=== PATIENT | female | born 1955 | race Caucasian/White ===

== ENCOUNTER 2025-01-25 17:28 | Inpatient (IN) | payer MEDICARE, MEDICAID ==
[~2025-01-25] VITALS: Ht 165.1 cm; Wt 88.5 kg
[~2025-01-25 17:28] MED LIST: ASPIRIN81 M1 PO; CARBAMAZEPINE300 MG PO; COLACE100 MG PO; FISH OIL 1,0001 EAC2 PO; INVEGA SUSTENN234 MG IM; INVEGA TRI IM; INVEGA6 MG PO; LIPITOR40 MG PO; MAALOX MAXIMUM355 ML PO; MELATONIN5 M6 PO; OMEPRAZOLE MAGN20 MG PO; SIMVASTATIN20 MG PO; SINGULAIR10 M1 PO; SYNTHROID25 MCG PO; TRAZODONE150 MG PO; TRIDERM28.4 GM T; TYLENOL EXTRA500 MG PO; VITAMIN D325 MCG PO
[2025-01-25] MEDS ORDERED: hydrOXYzine hydrochloride 50 MG/ML VIAL IM PRN (17:55)
[2025-01-25] MEDS ORDERED: Ziprasidone Mesylate 20 MG VIAL IM PRN (17:55)
[2025-01-25] MEDS ORDERED: LORazepam 1 MG TAB PO PRN (17:55)
[2025-01-25 20:00] VITALS: BP 148/82
[2025-01-25] MEDS ORDERED: carBAMazepine XR 100 MG TAB PO SCH (21:00)
[2025-01-25] MEDS ORDERED: fluvoxaMINE Maleate 50 MG TAB PO SCH (21:00)
[2025-01-25] MEDS ORDERED: Paliperidone 6 MG TER PO SCH (21:00)
[2025-01-26] MEDS ORDERED: Levothyroxine Sodium 25 MCG TAB PO SCH (06:00)
[2025-01-26 08:00] VITALS: BP 147/80
[2025-01-26] MEDS ORDERED: Cholecalciferol 2,000 UNIT TABLET (50 MCG) PO SCH (10:00)
[2025-01-26] MEDS ORDERED: Montelukast Sodium 10 MG TAB PO SCH (10:00)
[2025-01-26] MEDS ORDERED: ASPIRIN ENTERIC COATED 81 MG TAB PO SCH (10:00)
[2025-01-26] MEDS ORDERED: risperiDONE 1 MG ODT BC SCH (13:00)
[2025-01-26] MEDS ORDERED: Magnesium Hydroxide 30 ML UDC PO PRN (16:35)
[2025-01-26] MEDS ORDERED: MG-AL HYDROXIDE/SIMETICONE 30 ML UDC PO PRN (16:35)
[2025-01-26] MEDS ORDERED: ACETAMINOPHEN 325 MG TAB PO PRN (16:35)
[2025-01-26 20:00] VITALS: BP 141/46
[2025-01-26] MEDS ORDERED: Menthol/Zinc Oxide 4 GM THIN T SCH (21:00)
[2025-01-26] MEDS ORDERED: SIMVASTATIN 20 MG TAB PO SCH (22:00)
[2025-01-27 08:00] VITALS: BP 126/81
[2025-01-27] MEDS ORDERED: PALIPERIDONE PALMITATE 234 MG INJECTION IM ONE (12:20)
[2025-01-27 20:00] VITALS: BP 144/80
[2025-01-28 08:00] VITALS: BP 139/69
[2025-01-28] MEDS ORDERED: PALIPERIDONE PALMITATE 234 MG INJECTION IM ONE (08:40)
[2025-01-28] MEDS ORDERED: PALIPERIDONE PALMITATE 234 MG INJECTION IM SCH (09:20)
[2025-01-28 20:00] VITALS: BP 127/71
[2025-01-29 20:00] VITALS: BP 144/52
[2025-01-30 08:00] VITALS: BP 147/110
[2025-01-30] MEDS ORDERED: [UNRECOGNIZED DRUG - OTHER] PO PRN (09:05)
[2025-01-30] MEDS ORDERED: ALUMINUM HYDROXIDE PO PRN (09:05)
[2025-01-30] MEDS ORDERED: PALIPERIDONE PALMITATE 234 MG INJECTION IM ONE (09:30)
[2025-01-30] MEDS ORDERED: Vitamin D 1,000 IU TAB (25 MCG) PO SCH (10:00)
[2025-01-30 20:00] VITALS: BP 146/78
[2025-01-31 08:00] VITALS: BP 142/82
[2025-01-31] MEDS ORDERED: PALIPERIDONE PALMITATE 234 MG INJECTION IM PRN (08:25)
[2025-01-31] MEDS ORDERED: PALIPERIDONE PALMITATE 156 MG INJECTION IM ONE (10:20)
[2025-01-31 20:00] VITALS: BP 145/86
[2025-02-01] MEDS ORDERED: PALIPERIDONE PALMITATE 234 MG INJECTION IM ONE (08:25)
[2025-02-01 08:58] VITALS: BP 155/80
[2025-02-01 20:00] VITALS: BP 148/80
[2025-02-02 09:08] VITALS: BP 156/87
[2025-02-02 20:00] VITALS: BP 99/83
[2025-02-03 08:00] VITALS: BP 142/99
[2025-02-03] MEDS ORDERED: Menthol/Zinc Oxide 4 GM THIN T PRN (13:30)
[2025-02-03 20:00] VITALS: BP 166/100
[2025-02-03] MEDS ORDERED: NYSTATIN 15 GM BOT T SCH (21:00)
[2025-02-04 08:00] VITALS: BP 150/104
[2025-02-04] MEDS ORDERED: PALIPERIDONE PALMITATE 156 MG INJECTION IM SCH (09:35)
[2025-02-04 10:14] LABS: BASO % 0.2 % (0.0-1.0); EOS # 0.1 10*3/uL (0.0-0.4); EOS % 0.9 % (1.0-4.0); HEMATOCRIT 43.1 % (37.0-47.0); MEAN CORPUSCULAR HGB CONC 32.9 g/dl (33.0-37.0); MEAN PLATELET VOLUME 8.7 fl (9.6-12.3); MONO # 0.4 10*3/uL (0.1-1.0); MONO % 6.8 % (3.0-9.0); NEUT # 4.2 10*3/uL (2.3-7.9); NEUT % 64.8 % (47.0-73.0); PLATELET COUNT AUTOMATED 318 10*3/uL (130-400); WHITE BLOOD COUNT 6.5 10*3/uL (4.8-10.8)
[2025-02-04 11:09] LABS: ALKALINE PHOSPHATASE 112 U/L (46-116); BUN 7 mg/dl (9-23); CARBAMAZEPINE (TEGRETOL) TOTAL 6.6 ug/ml (4-12); CHLORIDE 103 mmol/L (98-107); POTASSIUM 3.8 mmol/L (3.4-5.1); TOTAL PROTEIN 7.6 gm/dL (6.0-8.0)
[2025-02-04 11:13] LABS: SGPT/ALT < 7 U/L (5-49); VALPROIC ACID (DEPAKENE) < 3.0 ug/ml (50-100); VITAMIN D, 25-HYDROXY 28.5 ng/mL (30-100)
[2025-02-04 18:25] LABS: BILIRUBIN Negative (Negative); BLOOD Negative (Negative); CLARITY Clear (Clear); COLOR Yellow (Yellow); GLUCOSE Negative (Negative); KETONE Negative (Negative); LEUKO ESTERASE Negative (Negative); NITRITE Negative (Negative); PH 5.5 (4.5-8.0); SPECIFIC GRAVITY 1.015 (1.001-1.030); UROBILINOGEN 0.2 E.U./dl (0.0-1.0)
[2025-02-04 18:46] LABS: BACTERIA TRACE; RBC 0-2 rbc/hpf (0-2); WBC 0-2 wbc/hpf (0-5)
[2025-02-04 20:00] VITALS: BP 132/67
[2025-02-05 08:00] VITALS: BP 105/76
[2025-02-05] MEDS ORDERED: Losartan Potassium 25 MG TAB PO SCH (09:00)
[2025-02-05 20:00] VITALS: BP 158/85
[2025-02-06] MEDS ORDERED: DIVALPROEX (DR) 500 MG TAB PO SCH (13:00)
[2025-02-06 20:00] VITALS: BP 126/45
[2025-02-07 08:00] VITALS: BP 121/72
[2025-02-07] MEDS ORDERED: Haloperidol Lactate 5 MG/ML AMP IM SCH (13:00)
[2025-02-07] MEDS ORDERED: HALOPERIDOL 5 MG TAB ONE (14:10)
[2025-02-07 20:00] VITALS: BP 115/68
[2025-02-07] MEDS ORDERED: HALOPERIDOL 5 MG TAB PO SCH (21:00)
[2025-02-08 08:09] VITALS: BP 125/47
[2025-02-08] MEDS ORDERED: Levothyroxine Sodium 50 MCG TAB PO SCH (09:18)
[2025-02-08 20:00] VITALS: BP 118/62
[2025-02-09 08:00] VITALS: BP 144/64
[2025-02-09] MEDS ORDERED: HALOPERIDOL DECANOATE 100 MG/ML AMP IM SCH (09:25)
[2025-02-09 20:00] VITALS: BP 158/70
[2025-02-10 07:30] LABS: BASO % 0.3 % (0.0-1.0); EOS # 0.2 10*3/uL (0.0-0.4); EOS % 2.2 % (1.0-4.0); HEMATOCRIT 41.7 % (37.0-47.0); MEAN CELL VOLUME 86.7 fl (81.0-99.0); MEAN CORPUSCULAR HGB 29.1 pg (27.0-31.0); MEAN CORPUSCULAR HGB CONC 33.6 g/dl (33.0-37.0); MEAN PLATELET VOLUME 8.5 fl (9.6-12.3); MONO # 0.5 10*3/uL (0.1-1.0); MONO % 7.4 % (3.0-9.0); NEUT # 4.2 10*3/uL (2.3-7.9); NEUT % 59.4 % (47.0-73.0); PLATELET COUNT AUTOMATED 297 10*3/uL (130-400); RED BLOOD COUNT 4.81 10*6/uL (4.10-5.10); RED CELL DISTRI WIDTH 12.9 % (0-14.5); WHITE BLOOD COUNT 7.1 10*3/uL (4.8-10.8)
[2025-02-10 08:00] VITALS: BP 155/91
[2025-02-10 08:24] LABS: ALKALINE PHOSPHATASE 113 U/L (46-116); BUN 6 mg/dl (9-23); CHLORIDE 102 mmol/L (98-107); TOTAL PROTEIN 7.3 gm/dL (6.0-8.0)
[2025-02-10 08:27] LABS: POTASSIUM 4.4 mmol/L (3.4-5.1); SGPT/ALT < 7 U/L (5-49)
[2025-02-10 20:00] VITALS: BP 143/67
[2025-02-11 08:00] VITALS: BP 150/80
[2025-02-11 20:00] VITALS: BP 116/59
[2025-02-12 08:08] VITALS: BP 127/68
[2025-02-12 20:00] VITALS: BP 118/78
[2025-02-13 08:00] VITALS: BP 111/64
[2025-02-13 20:00] VITALS: BP 151/116
[2025-02-13 21:13] VITALS: BP 146/40
[2025-02-14 08:00] VITALS: BP 145/81
[2025-02-14] MEDS ORDERED: INVEGA SUSTENN156 MG IM (08:12)
[2025-02-14] MEDS ORDERED: HALOPERIDO100 MG/11 IM (08:12)
== END 2025-02-14 11:26 | DRG 885 ==
LOC: 3N 17:28
PROVIDERS: Counselor Professional; Nurse Practitioner; ADMIT Psychiatry & Neurology Psychiatry; ATTEND Psychiatry & Neurology Psychiatry
PROC: GZHZZZZ Group Psychotherapy (ICD-10-PCS; principal; 2025-01-26)
PROC: GZ51ZZZ Individual Psychotherapy, Behavioral (ICD-10-PCS; 2025-01-26)
DX: F25.0 Schizoaffective disorder, bipolar type (principal); I25.10 Atherosclerotic heart disease of native coronary artery without angina pectoris; F43.10 Post-traumatic stress disorder, unspecified; R73.9 Hyperglycemia, unspecified; E78.2 Mixed hyperlipidemia; E03.9 Hypothyroidism, unspecified; K21.9 Gastro-esophageal reflux disease without esophagitis; G47.00 Insomnia, unspecified; I10 Essential (primary) hypertension; Z88.8 Allergy status to other drugs, medicaments and biological substances; Z79.899 Other long term (current) drug therapy; Z90.710 Acquired absence of both cervix and uterus; Z90.49 Acquired absence of other specified parts of digestive tract; Z98.51 Tubal ligation status